=== PATIENT | female | born 1970 | race African-American/Black ===

== ENCOUNTER 2017-06-06 14:49 | Emergency (ER) | payer BC ==
[2017-06-06 14:55] VITALS: TEMP 98.3; BMI 32.8
[2017-06-06] MEDS ORDERED: ASPIRIN 81 MG CHEWABLE TABLETS PO ONE (14:58)
--- NOTE | 2017-06-06 14:58 | PDOC ---
History of Present Illness - General History Source: Patient Exam Limitations: No Limitations - History of Present Illness Initial Comments: 06/06/17 15:14 The patient is a 46 year old female with past medical history of hypothyroidism who presents to the ED with complaints of chest pain that began 10 am today. The patient states that her symptoms began while at [employer] where she began to feel a dull ache under her left breast. She reports that her pain is non- radiating, is worsened with movement, and she noticed the pain was worse when she turned around to reverse her car after [employer]. She states that the pain persisted despite resting for a little after [employer] and taking two extra strength Tylenol. The patient denies any worsening pain with deep inspiration. She denies any shortness of breath or diaphoresis. The patient reports travel last month to [place] but denies any calf swelling or tenderness. She denies any history of familial cardiac disease. She denies any fevers or chills, nausea , vomiting, diarrhea, cough, or urinary symptoms. <Cele Simons - Last Filed: 06/06/17 15:33> <Shyann Hall - Last Filed: 06/06/17 18:29> <Monika Wolfe - Last Filed: 06/06/17 21:00> - General Chief Complaint: Chest Pain Stated Complaint: CHEST PAIN Time Seen by Provider: 06/06/17 14:50 Past History <Cele Simons - Last Filed: 06/06/17 15:33> - Past Medical History COPD: No Thyroid Disease: Yes - Surgical History Abdominal Surgery: Yes (GASTRIC SLEEVE) - Suicide/Smoking/Psychosocial Hx Smoking History: Never smoked Have you smoked in the past 12 months: No Hx Alcohol Use: No <Shyann Hall - Last Filed: 06/06/17 18:29> <Monika Wolfe - Last Filed: 06/06/17 21:00> - Past Medical History Allergies/Adverse Reactions: Allergies Allergy/AdvReac Type Severity Reaction Status Date / Time No Known Allergies Allergy Verified 06/06/17 14:50 Home Medications: Ambulatory Orders Acetaminophen [Tylenol -] 1,000 mg PO ASDIR 06/06/17 Review of Systems - Review of Systems Able to Perform ROS?: Yes Comments:: 06/06/17 15:14 GENERAL/CONSTITUTIONAL: No fever or chills. No weakness. HEAD, EYES, EARS, NOSE AND THROAT: No change in vision. No ear pain or discharge. No sore throat. CARDIOVASCULAR: Present: chest pain No shortness of breath. RESPIRATORY: No cough, wheezing, or hemoptysis. GASTROINTESTINAL: No nausea, vomiting, diarrhea or constipation. GENITOURINARY: No dysuria, frequency, or change in urination. MUSCULOSKELETAL: No joint or muscle swelling or pain. No neck or back pain. SKIN: No rash NEUROLOGIC: No headache, vertigo, loss of consciousness, or change in strength/ sensation. ENDOCRINE: No increased thirst. No abnormal weight change. HEMATOLOGIC/LYMPHATIC: No anemia, easy bleeding, or history of blood clots. ALLERGIC/IMMUNOLOGIC: No hives or skin allergy. All Other Systems: Reviewed and Negative <Cele Simons - Last Filed: 06/06/17 15:33> *Physical Exam - Vital Signs Last Vital Signs Temp Pulse Resp BP Pulse Ox 98.3 F 66 18 122/75 100 06/06/17 14:49 06/06/17 14:49 06/06/17 14:49 06/06/17 14:49 06/06/17 14:49 - Physical Exam Comments: 06/06/17 15:15 GENERAL: Awake, alert, and fully oriented, in no acute distress HEAD: No signs of trauma EYES: PERRLA, EOMI, sclera anicteric, conjunctiva clear ENT: Auricles normal inspection, hearing grossly normal, nares patent, oropharynx clear without exudates. Moist mucosa NECK: Normal ROM, supple, no lymphadenopathy, JVD, or masses LUNGS: Breath sounds equal, clear to auscultation bilaterally. No wheezes, and no crackles HEART: Regular rate and rhythm, normal S1 and S2, no murmurs, rubs or gallops ABDOMEN: Soft, nontender, normoactive bowel sounds. No guarding, no rebound. No masses EXTREMITIES: Normal range of motion, no edema. No clubbing or cyanosis. No cords, erythema, or tenderness NEUROLOGICAL: Cranial nerves II through XII grossly intact. Normal speech, normal gait SKIN: Warm, Dry, normal turgor, no rashes or lesions noted. <Cele Simons - Last Filed: 06/06/17 15:33> - Vital Signs Last Vital Signs Temp Pulse Resp BP Pulse Ox 98.3 F 66 18 122/75 100 06/06/17 14:49 06/06/17 14:49 06/06/17 14:49 06/06/17 14:49 06/06/17 14:49 <Shyann Hall - Last Filed: 06/06/17 18:29> - Vital Signs Last Vital Signs Temp Pulse Resp BP Pulse Ox 98.3 F 66 18 122/75 100 06/06/17 14:49 06/06/17 14:49 06/06/17 14:49 06/06/17 14:49 06/06/17 14:49 <Monika Wolfe - Last Filed: 06/06/17 21:00> Heart Score/ECG Review - History History: Slightly suspicious - Electrocardiogram EKG: Normal - Age Age: 45-65 - Risk Factors Based on the list above the patient has:: No risk factors known - ECG Intrepretation Comment:: 06/06/17 15:27 sinus petty at 53, nl axis, nl interval, no acute st/t wave findings <Shyann Hall - Last Filed: 06/06/17 18:29> ED Treatment Course - LABORATORY CBC & Chemistry Diagram: 06/06/17 15:10 06/06/17 15:10 - RADIOLOGY Radiograph Interpretation: 06/06/17 15:34 Chest X-ray as reviewed by Dr. Santana reports no acute pathology. <Cele Simons - Last Filed: 06/06/17 15:33> - LABORATORY CBC & Chemistry Diagram: 06/06/17 15:10 06/06/17 15:10 - RADIOLOGY Radiology Studies Ordered: Category Date Time Status CHEST PA & LAT [RAD] Stat Radiology 06/06/17 14:57 Ordered <Shyann Hall - Last Filed: 06/06/17 18:29> - LABORATORY CBC & Chemistry Diagram: 06/06/17 15:10 06/06/17 15:10 - ADDITIONAL ORDERS Additional order review: Laboratory Results 06/06/17 06/06/17 06/06/17 15:10 15:10 15:10 PT with INR 12.8 INR 1.15 PTT (Actin FS) 26.7 Sodium 135 L Potassium 3.9 Chloride 102 Carbon Dioxide 25 Anion Gap 8 BUN 11 Creatinine 0.9 Creat Clearance w eGFR > 60 Random Glucose 95 Calcium 9.3 Total Bilirubin 0.4 AST 20 ALT 13 Alkaline Phosphatase 64 Creatine Kinase 237 H Creatine Kinase Index 0.8 CK-MB (CK-2) 2.0 Troponin I < 0.03 L B-Natriuretic Peptide 20.33 Total Protein 6.9 Albumin 3.8 TSH 2.46 Urine HCG, Qual 06/06/17 15:05 PT with INR INR PTT (Actin FS) Sodium Potassium Chloride Carbon Dioxide Anion Gap BUN Creatinine Creat Clearance w eGFR Random Glucose Calcium Total Bilirubin AST ALT Alkaline Phosphatase Creatine Kinase Creatine Kinase Index CK-MB (CK-2) Troponin I B-Natriuretic Peptide Total Protein Albumin TSH Urine HCG, Qual Negative 06/06/17 15:10 RBC 5.16 MCV 63.2 L MCHC 31.3 L RDW 20.3 H MPV 10.0 Neutrophils % 42.4 L Lymphocytes % 45.1 H Monocytes % 9.7 Eosinophils % 1.6 Basophils % 1.2 - Medications Given in the ED: ED Medications Discontinued Medications Generic Name Dose Route Start Last Admin Trade Name Freq PRN Reason Stop Dose Admin Aspirin 324 mg 06/06/17 14:58 06/06/17 15:15 Asa - PO 06/06/17 14:59 324 mg ONCE ONE Administration Ibuprofen 600 mg 06/06/17 18:30 06/06/17 18:38 Motrin - PO 06/06/17 18:31 600 mg ONCE ONE Administration <Monika Wolfe - Last Filed: 06/06/17 21:00> Medical Decision Making - Medical Decision Making 06/06/17 15:27 46yo female with atypical cp -fam hx of dm, htn -no fam hx of PE/DVT or sudden cardiac -no recent travel or leg swelling/calf cramping -not pleuritic in nature -no chest wall tenderness -denies trauma and cough -will check labs, ekg, trop x 2 -low risk - if trops negative can d/c to home with cardiology fu -will give asa ekg nonacute cxr negative for acute pathology 06/06/17 16:23 re-eval: pt states feeling mildly better. No sob. Speaking in clear sentences. No radiation of the pain initial trop negative. labs reviewed with the patient. repeat trop at 9p pt updated and agrees with the plan 06/06/17 18:29 pt states feeling better. no pain at this time. pending repeat trop at 9p. Family at the bedside and updated on the plan. 06/06/17 18:30 pt will be signed out to the oncoming ED physician pending repeat trop <Shyann Hall - Last Filed: 06/06/17 18:29> - Medical Decision Making 06/06/17 20:03 I received pt on signout. If her 2nd cardiac enzyme is negative and she will be discharged home with atypical CP; chest wall pain. 06/06/17 20:59 Pt's enzyme is negative <Monika Wolfe - Last Filed: 06/06/17 21:00> *DC/Admit/Observation/Transfer - Attestations Scribe Attestion: 06/06/17 15:15 Documentation prepared by Cele Simons, acting as manager medical affairs for Shyann Hall DO. <Cele Simons - Last Filed: 06/06/17 15:33> - Discharge Dispostion Admit: No - Attestations Physician Attestion: 06/06/17 15:31 I, Dr. Shyann Hall DO, attest that this document has been prepared under my direction and personally reviewed by me in its entirety. I further attest, that it accurately reflects all work, treatment, procedures and medical decision -making performed by me. <Shyann Hall - Last Filed: 06/06/17 18:29> - Discharge Dispostion Admit: No <Monika Wolfe - Last Filed: 06/06/17 21:00> Diagnosis at time of Disposition: Atypical chest pain - Discharge Dispostion Disposition: HOME Condition at time of disposition: Stable - Referrals Referrals: Sathish Pereira MD [Staff Physician] - Rc Bolden MD [Staff Physician] - - Patient Instructions Printed Discharge Instructions: DI for Atypical Chest Pain Additional Instructions: Please make an appointment to see your PMD this week. Please return to the ED with any further concerns. Please follow up with the whitewater rafting guide if the pain continues. - Post Discharge Activity Forms/Work/School Notes: Back to Work
[2017-06-06] MEDS ORDERED: ASPIRIN 81 MG CHEWABLE TABLETS ONE (15:09)
[2017-06-06 15:45] LABS: ALBUMIN 3.8 g/dl (3.5-5.0); ALK PHOS 64 U/L (32-92); ANION GAP 8 (8-16); BILIRUBIN,TOTAL 0.4 mg/dl (0.2-1.0); CALCIUM 9.3 mg/dl (8.4-10.2); CO2 25 mmol/L (22-28); CPK 237 IU/L (26-192); CREATININE 0.9 mg/dl (0.6-1.3); GLUCOSE,RANDOM 95 mg/dl (74-106); SGOT/AST 20 U/L (10-42); SGPT/ALT 13 U/L (10-40); TOT PROT 6.9 g/dl (6.4-8.3)
[2017-06-06 15:52] LABS: BASO % 1.2 % (0-2.0); EOS % 1.6 % (0-4.5); MCHC 31.3 g/dl (32.0-36.0); MEAN CELL VOLUME 63.2 fl (80-96); NEUT % 42.4 % (42.8-82.8); PLATELET COUNT 163 K/MM3 (134-434); RDW 20.3 % (11.6-15.6); WHITE BLOOD COUNT 7.7 K/mm3 (4.0-10.8)
[2017-06-06 16:01] LABS: ACTIVATED PTT 26.7 SECONDS (24.0-38.9); MCH 19.8 pg (25.7-33.7)
[2017-06-06 16:02] LABS: BASO # 0.1 # (0.1-1); EOS # 0.1 #; LYMPH # 3.5 # (8-40); MONO # 0.7 #; NEUT # 3.3 # (42.8-82.8)
[2017-06-06 16:05] LABS: INR 1.15 (0.82-1.09); PROTHROMBIN TIME (PATIENT) 12.8 SEC (10.2-13.0)
[2017-06-06 16:19] LABS: TROPONIN I (DFP) < 0.03 ng/ml (0.03-0.50)
[2017-06-06 18:16] LABS: THYROID STIMULATING HORMONE 2.46 uIU/ml (0.358-3.74)
[2017-06-06] MEDS ORDERED: IBUPROFEN 600 MG TABLET (FP) PO ONE ×4 (18:30→21:19)
[2017-06-06 20:36] LABS: CPK 238 IU/L (26-192)
[2017-06-06 20:51] LABS: TROPONIN I (DFP) < 0.03 ng/ml (0.03-0.50)
[2017-06-06 21:04] VITALS: BP 122/60; PULSE 71
--- NOTE | 2017-06-07 12:17 | EKG ---
Test Reason : Blood Pressure : / mmHG Vent. Rate : 053 BPM Atrial Rate : 053 BPM P-R Int : 188 ms QRS Dur : 086 ms QT Int : 438 ms P-R-T Axes : 046 -02 035 degrees QTc Int : 410 ms SINUS BRADYCARDIA OTHERWISE NORMAL ECG NO PREVIOUS ECGS AVAILABLE Confirmed by ROSA ELENA IRBY MD ([id number]) on 06/07/2017 12:17:27 PM Referred By: CYNTHIA TAMEZ Confirmed By:ROSA ELENA IRBY MD
== END 2017-06-06 21:20 | disposition home or self-care (01) ==
LOC: FER 14:49
DX: R07.89 Other chest pain (principal); E03.9 Hypothyroidism, unspecified
CPT/HCPCS: 36415; 71020-TC; 80053; 82550; 82553; 83880; 84443; 84484; 84703; 85025; 85610; 85730; 93005; 99285-25

== ENCOUNTER 2018-05-27 06:58 | Day surgery (SDC) | payer BC ==
[2018-05-23 11:47] VITALS: BMI 29.7
[2018-05-27] MEDS ORDERED: MIDAZOLAM HCL 2 MG/2 ML SINGLE DOSE VIAL ONE (08:30)
[2018-05-27] MEDS ORDERED: BUPIVACAINE HCL/PF 2.5 MG/ML - 30 ML VIAL IJ ONE (08:37)
[2018-05-27] MEDS ORDERED: EPINEPHrine 1:1,000 1 MG/1 ML - 30ML VIAL (INJECTION) ONE (08:38)
[2018-05-27] MEDS ORDERED: PROPOFOL 20 ML ONE (09:37)
[2018-05-27] MEDS ORDERED: BUPIVACAINE HCL/PF 0.25% (2.5MG/ML) 10 ML VIAL IJ ONE (09:45)
[2018-05-27 11:38] VITALS: PULSE 70
[2018-05-27 12:35] VITALS: BP 121/65; TEMP 98
--- NOTE | 2018-05-29 13:18 | OP ---
DATE OF OPERATION: 05/27/2018 LOCATION: [facility]. SURGEON: Jamey Gusman MD SPIRAL SPRING WINDER: GIGI Miller PREOPERATIVE DIAGNOSES: 1. Left knee medial and lateral meniscal tear. 2. Left knee cartilage injury. 3. Left knee synovitis. POSTOPERATIVE DIAGNOSES: 1. Left knee medial and lateral meniscal tear. 2. Left knee cartilage injury. 3. Left knee synovitis. PROCEDURES: 1. Left knee arthroscopy with partial meniscectomy of medial and lateral meniscus, CPT code 77463. 2. Left knee arthroscopy with chondroplasty and abrasion-plasty, CPT code 95502. 3. Left knee arthroscopy with synovectomy, CPT code 99714. FINDINGS: 1. Medial meniscus body and posterior horn tear. 2. Lateral meniscus posterior horn tear. 3. Synovitis, patellofemoral, medial and lateral notch area. 4. Diffuse grade 1 to 2 cartilage injury, medial joint. 5. ACL and PCL intact. 6. Grade 2 changes in lateral joint. 7. Central grade 2 to 4 cartilage injury, patellofemoral trochlea and patellofemoral joint. PROCEDURE: Informed consent was obtained. The patient came to the operating room, where the lower extremity was prepped and draped in a sterile fashion. A tourniquet was placed on the upper thigh, but not inflated. Using standard arthroscopic technique, a lateral incision and portal was made to allow for introduction of the camera into the suprapatellar bursa. This was then taken to the medial joint line, where under direct visualization, a medial incision and portal was made. Excessive synovium noted in the medial, lateral and patellofemoral and notch area was removed by an upbiter, shaver and Bovie cautery. This was found to bring in inflammatory tissue into the joint surface, a source of pain and dysfunction. Probing of the medial and lateral meniscus found tears, as described in the findings. These were removed with the upbiter and shaver and taken back to a stable rim. Grade 2 to 3 degenerative changes were treated with a chondroplasty, removing all flaking surfaces with low-setting Bovie along the periphery to prevent further flaking. Grade 4 changes, as noted, were treated with an abrasoplasty, creating a bleeding surface at the bone/cartilage interface. Aggressive debridement with shaver/tommie created bleeding surface. Micro fracture also done when indicated in findings. All areas of the knee were once again reexamined. The knee was then drained and a single suture was placed in all portals. A sterile dressing was placed and the patient was transferred to the recovery room without complication. The PA listed above was present and assisted at surgery. Their presence was absolutely medically necessary for the completion of the procedure. They helped hold the arthroscopy, pass instruments (and implants when indicated) and the procedure could not have been completed without their assistance. JAMEY GUSMAN M.D. [id number]
== END 2018-05-27 13:00 | disposition home or self-care (01) ==
LOC: FASU 06:58
PROVIDERS: ATTEND Orthopaedic Surgery
PROC: 0SBD4ZZ Excision of Left Knee Joint, Percutaneous Endoscopic Approach (ICD-10-PCS; 2018-05-27)
PROC: 0SBD4ZZ Excision of Left Knee Joint, Percutaneous Endoscopic Approach (ICD-10-PCS; 2018-05-27)
PROC: 0SBD4ZZ Excision of Left Knee Joint, Percutaneous Endoscopic Approach (ICD-10-PCS; principal; 2018-05-27 08:30)
DX: S83.242A Other tear of medial meniscus, current injury, left knee, initial encounter (principal); S83.282A Other tear of lateral meniscus, current injury, left knee, initial encounter; S83.8X2A Sprain of other specified parts of left knee, initial encounter; M65.862 Other synovitis and tenosynovitis, left lower leg; X58.XXXA Exposure to other specified factors, initial encounter; Y93.9 Activity, unspecified; Y92.9 Unspecified place or not applicable
CPT/HCPCS: 84703; 94760

== ENCOUNTER 2019-12-19 06:21 | Inpatient (IN) | payer BC ==
[2019-12-18 11:01] VITALS: BMI 32.8
[2019-12-19] MEDS ORDERED: SUCCINYLCHOLINE CHLORIDE 200 MG/10 ML SYRINGE ONE (07:26)
[2019-12-19] MEDS ORDERED: PROPOFOL 20 ML ONE (07:26)
[2019-12-19] MEDS ORDERED: ROCURONIUM BROMIDE 100 MG/10 ML VIAL ONE ×2 (07:26→08:46)
[2019-12-19] MEDS ORDERED: MIDAZOLAM HCL 2 MG/2 ML SINGLE DOSE VIAL ONE ×3 (07:26→07:56)
--- NOTE | 2019-12-19 07:39 | HP ---
History & Physical Update - History History: No Change - Physical Physical: No Change - Assessment Assessment: No Change - Plan Plan: No Change (Consent signed and witnessed, all questions answered)
[2019-12-19] MEDS ORDERED: DESFLURANE GAS 240 ML BOTTLE IH ONE (07:57)
[2019-12-19] MEDS ORDERED: SEVOFLURANE 250 ML BTL ONE (07:57)
[2019-12-19] MEDS ORDERED: ceFAZolin SODIUM 1 GM VIAL IVPB ONE (08:17)
[2019-12-19] MEDS ORDERED: ceFAZolin SODIUM 1 GM VIAL ONE (09:05)
[2019-12-19] MEDS ORDERED: NEOSTIGMINE METHYLSULFATE 0.5 MG/ML - 10 ML MDV ONE (09:05)
[2019-12-19] MEDS ORDERED: KETOROLAC TROMETHAMINE 30 MG/1 ML VIAL ONE (09:05)
[2019-12-19] MEDS ORDERED: DEXAMETHASONE SOD PHOSPHATE 4 MG/1 ML VIAL ONE (09:05)
[2019-12-19] MEDS: CEFAZOLIN 2 GM/D5W 2 GM/50 ML ML IVPB SCH ×3 (10:00→17:12)
[2019-12-19] MEDS ORDERED: BENZOIN/ALOE VERA/STORAX/TOLU 58 ML BOTTLE ONE (10:10)
[2019-12-19] MEDS ORDERED: oxyCODONE HCL 5 MG TABLET PO PRN ×2 (10:33→11:14)
[2019-12-19] MEDS ORDERED: IBUPROFEN 800 MG/8 ML IJ IVPB PRN (10:33)
[2019-12-19] MEDS ORDERED: IBUPROFEN 600 MG TABLET (FP) PO PRN (10:33)
--- NOTE | 2019-12-19 10:36 | OP ---
Operative Note - Note: Operative Date: 12/19/19 Pre-Operative Diagnosis: 49yo P2 with large fibroid uterus, menorrhagia, anemia, Dysmenorrhia Operation: Abdominal Supracervical Hysterectomy, Bilateral Salpingectomy Findings: 16week multifibroid uterus Normal tubes and ovaries Post-Operative Diagnosis: Same as Pre-op Surgeon: Lizbeth Bowman Pool Table Operator: Kendrick Casey Anesthesiologist/FILLER BLENDER: Karrie Mccarthy Anesthesia: General Specimens Removed: Uterine fundus with fibroids, Bilateral Fallopian tubes Estimated Blood Loss (mls): 100 Drains, Volume Out (mls): 200 Fluid Volume Replaced (mls): 1,400 Operative Report Dictated: Yes
[2019-12-19] MEDS ORDERED: ENOXAPARIN NA (PORCINE) 40 MG/0.4 ML DISP.SYRIN SQ ONE (11:00)
[2019-12-19] MEDS ORDERED: ACETAMINOPHEN INJECTION 100 ML IVPB ONE (11:49)
[2019-12-19] MEDS: ACETAMINOPHEN 1000 MG/100 ML VIAL (NON FORMULARY) IVPB SCH ×2 (11:52→18:13)
[2019-12-19] MEDS ORDERED: HYDROmorphone HCl 2 MG/ML VIAL ONE (12:51)
[2019-12-19] MEDS: HYDROmorphone HCl 2 MG/ML VIAL IVPB PRN ×2 (12:54→14:19)
[2019-12-19] MEDS ORDERED: ONDANSETRON 4 MG/2 ML VIAL ONE (14:16)
[2019-12-19] MEDS: ONDANSETRON 4 MG/2 ML VIAL IVPUSH PRN (14:19)
[2019-12-19] MEDS ORDERED: oxyCODONE HCL 5 MG TABLET ONE (15:13)
[2019-12-19] MEDS: oxyCODONE HCL 5 MG TABLET PO PRN (15:16)
[2019-12-19] MEDS: oxyCODONE HCL 10 MG SUSTAINED ACTING TABLET PO SCH (22:36)
[2019-12-20] MEDS: LACTATED RINGERS SOLUTION 1,000 ML IV SCH ×2 (00:23→12:55)
[2019-12-20] MEDS: ACETAMINOPHEN 1000 MG/100 ML VIAL (NON FORMULARY) IVPB SCH ×3 (00:23→12:49)
[2019-12-20] MEDS: ELECTROLYTE-148 SOLN 1,000 ML IV SCH ×2 (00:30→12:55)
[2019-12-20] MEDS: CEFAZOLIN 2 GM/D5W 2 GM/50 ML ML IVPB SCH (02:30)
[2019-12-20] MEDS: oxyCODONE HCL 5 MG TABLET PO PRN (04:21)
[2019-12-20] MEDS: ONDANSETRON 4 MG/2 ML VIAL IVPUSH PRN ×2 (04:36→13:15)
--- NOTE | 2019-12-20 08:45 | PN ---
Progress Note (short form) - Note Progress Note: Anesthesia postop note POD#1. S/P Abdominal Supracervical Hysterectomy, Bilateral Salpingectomy under GA with TAP block. VSS. pain well controlled, 09/21. Slight sore throat, Reassured. Tolerating po. No apparent post anesthesia complications.
[2019-12-20] MEDS: oxyCODONE HCL 10 MG SUSTAINED ACTING TABLET PO SCH ×2 (09:17→21:59)
--- NOTE | 2019-12-20 10:08 | OP ---
DATE OF OPERATION: 12/19/2019 DIAGNOSIS: [id number] para 2 with large 18-cm fibroid uterus, menorrhagia, anemia, dysmenorrhea. OPERATION: Abdominal supracervical hysterectomy, bilateral salpingectomy. FINDINGS: Sixteen-week multi-fibroid uterus, normal tubes and ovaries. POSTOPERATIVE DIAGNOSIS: [id number] para 2 with large 18-cm fibroid uterus, menorrhagia, anemia, dysmenorrhea. SURGEON: Libzeth Bowman MD PICKLE PROCESSOR: Kendrick Casey MD ANESTHESIOLOGIST: Karrie Mccarthy MD ANESTHESIA: General. DESCRIPTION OF THE OPERATIVE PROCEDURE: After assuring informed consent, patient was brought to the operating room where general anesthesia was administered. Abdomen was prepped and draped in sterile fashion. Pfannenstiel skin incision was created in the same area of her prior . The incision was carried down to the level of the fascia with scalpel, and fascia was incised with scalpel and dissected bilaterally with Bovie cautery. The fascia was dissected off the rectus abdominis muscle with Bovie cautery. Muscle was split in the midline and peritoneum was identified and tented with Kellies and opened with Metzenbaum scissors, with good visualization of underlying structures. Peritoneal incision was extended superiorly and inferiorly. The uterus was exteriorized through the incision. Bladder was retracted, and round ligament was noted on the right side and was cauterized and dissected with LigaSure clamp. Identical procedure was performed to the left round ligament. The vesicouterine peritoneum was incised and the bladder flap was created. Bladder was dissected downward and retracted with the Sweta retractor. The right fallopian tube was dissected off the broad ligament, off the mesosalpinx. Subsequently, the broad ligament was incised and the uteroovarian ligament was clamped with large Belkis and dissected off the uterine fundus. The uteroovarian ligament was tied with 3-0 tie and suture ligated with 0 Vicryl. Excellent hemostasis was noted. Identical procedure was performed on both right and left ovary, and both right and left fallopian tubes were dissected and sent for permanent pathology. Subsequently, the uterine artery was skeletonized and was grasped with Reyes clamp, was dissected off the uterine body and suture ligated with 0 Vicryl. Identical procedure was performed to both uterine arteries. Further downward Reyes clamp was placed at the lower uterine segment, cervical junction to dissect the uterine artery further off the uterus, so second bite dissecting the uterine artery was created with Reyes clamp and suture ligated with 0 Vicryl bilaterally. Excellent hemostasis was noted throughout. The uterine fundus was dissected off the cervix with Bovie cautery. The cervical stump was oversewn with 0 Vicryl sutures, imbricating the cervix. Excellent hemostasis was noted, and subsequently the parietal peritoneum was closed over the cervical stump with 2-0 Vicryl. Abdomen was copiously irrigated. All sponges were removed. Excellent hemostasis was noted, and peritoneum was identified and closed with 0 Vicryl. Muscle was reapproximated at the midline with 0 Vicryl. Fascia was closed with 0 Vicryl in running fashion in 2 segments from each corner of the fascial incision. The subcutaneous tissue was reapproximated with 2-0 chromic, and subsequently skin was closed with 4-0 Biosyn. Sponge and instrument count was correct x2. Estimated blood loss was 100 mL. Patient put out 200 mL of clear urine and received 1400 mL of IV fluids. She was brought to the recovery room in stable condition. Merary [id number]
[2019-12-20 12:04] LABS: HEMATOCRIT 32.8 % (32.4-45.2); HEMOGLOBIN 10.4 GM/dL (10.7-15.3); MCH 20.6 pg (25.7-33.7); MCHC 31.6 g/dl (32.0-36.0); MEAN CELL VOLUME 65.1 fl (80-96); MEAN PLT VOLUME 9.9 fl (7.5-11.1); PLATELET COUNT 159 K/MM3 (134-434); RBC 5.03 M/mm3 (3.60-5.2); RDW 31.2 % (11.6-15.6); WHITE BLOOD COUNT 18.7 K/mm3 (4.0-10.0)
--- NOTE | 2019-12-20 18:05 | PN ---
Progress Note, Physician Chief Complaint: No acute complains pain well controlled no flatus tolarated regular diet POPD #1 s/p NILSA/Bl salpingectomy History of Present Illness: Large fibroid uterus - Current Medication List Current Medications: Active Medications Hydromorphone HCl (Dilaudid Vial -) 1 mg IVPB Q4H PRN PRN Reason: PAIN LEVEL 7 - 10 Last Admin: 12/19/19 14:19 Dose: 0.5 mg Documented by: Parenteral Electrolytes (Plasma-Lyte 148 -) 1,000 mls @ 125 mls/hr IV ASDIR [facility] Last Admin: 12/20/19 12:55 Dose: Not Given Documented by: Lactated Ringer's (Lactated Ringers Solution) 1,000 mls @ 125 mls/hr IV ASDIR [facility] Last Admin: 12/20/19 12:55 Dose: Not Given Documented by: Ibuprofen (Caldolor Injection -) 800 mg IVPB Q6H PRN PRN Reason: Fever - If PO not effective. Ibuprofen (Motrin -) 600 mg PO Q6H PRN PRN Reason: FEVER Levothyroxine Sodium (Synthroid -) 50 mcg PO DAILY@0700 NILSA Ondansetron HCl (Zofran Injection) 4 mg IVPUSH Q6H PRN PRN Reason: NAUSEA Last Admin: 12/20/19 13:15 Dose: 4 mg Documented by: Oxycodone HCl (Roxicodone -) 5 mg PO Q4H PRN PRN Reason: PAIN LEVEL 1 - 3 Oxycodone HCl (Roxicodone -) 10 mg PO Q4H PRN PRN Reason: PAIN LEVEL 4 - 6 Last Admin: 12/20/19 04:21 Dose: 10 mg Documented by: Oxycodone HCl (Oxycontin -) 10 mg PO BID [facility] Last Admin: 12/20/19 09:17 Dose: 10 mg Documented by: - Objective Vital Signs: Vital Signs Temperature 98.2 F 12/20/19 14:25 Pulse Rate 67 12/20/19 14:25 Respiratory Rate 20 12/20/19 14:25 Blood Pressure 145/79 12/20/19 14:25 O2 Sat by Pulse Oximetry (%) 97 12/19/19 21:00 Constitutional: Yes: Well Nourished, No Distress, Calm Eyes: Yes: WNL, Conjunctiva Clear HENT: Yes: WNL, Atraumatic, Normocephalic Neck: Yes: WNL Cardiovascular: Yes: WNL, Regular Rate and Rhythm Respiratory: Yes: WNL, Regular, CTA Bilaterally Gastrointestinal: Yes: WNL, Normal Bowel Sounds, Soft Genitourinary: Yes: WNL Musculoskeletal: Yes: WNL Extremities: Yes: WNL Edema: No (Compression stockings on) Integumentary: Yes: WNL Wound/Incision: Yes: Clean/Dry, Dressing Dry and Intact Neurological: Yes: WNL, Alert, Oriented ...Motor Strength: WNL Psychiatric: Yes: WNL, Alert, Oriented Labs: CBC, BMP 12/20/19 11:10 Assessment/Plan 49yo P2 POD #1, s/p NILSA/Bl salpingectomy VSS, Afebrile Await voiding trial encourage ambulation routine PostOp care 'cont Synthroid
[2019-12-20] MEDS ORDERED: BISACODYL 10 MG SUPP.RECT PR PRN (18:17)
[2019-12-20] MEDS: HYDROmorphone HCl 2 MG/ML VIAL IVPB PRN (23:30)
[2019-12-21] MEDS: HYDROmorphone HCl 2 MG/ML VIAL IVPB PRN (06:06)
[2019-12-21] MEDS: LEVOTHYROXINE NA 50 MCG TABLET (FP) PO SCH (06:08)
--- NOTE | 2019-12-21 08:21 | PN ---
Progress Note, Physician - Current Medication List Current Medications: Active Medications Bisacodyl (Dulcolax Suppository -) 10 mg KS PRN PRN PRN Reason: CONSTIPATION Last Admin: 12/20/19 22:19 Dose: 10 mg Documented by: Hydromorphone HCl (Dilaudid Vial -) 1 mg IVPB Q4H PRN PRN Reason: PAIN LEVEL 7 - 10 Last Admin: 12/21/19 06:06 Dose: 1 mg Documented by: Parenteral Electrolytes (Plasma-Lyte 148 -) 1,000 mls @ 125 mls/hr IV ASDIR [facility] Last Admin: 12/20/19 12:55 Dose: Not Given Documented by: Lactated Ringer's (Lactated Ringers Solution) 1,000 mls @ 125 mls/hr IV ASDIR [facility] Last Admin: 12/20/19 12:55 Dose: Not Given Documented by: Ibuprofen (Caldolor Injection -) 800 mg IVPB Q6H PRN PRN Reason: Fever - If PO not effective. Ibuprofen (Motrin -) 600 mg PO Q6H PRN PRN Reason: FEVER Levothyroxine Sodium (Synthroid -) 50 mcg PO DAILY@0700 [facility] Last Admin: 12/21/19 06:08 Dose: 50 mcg Documented by: Ondansetron HCl (Zofran Injection) 4 mg IVPUSH Q6H PRN PRN Reason: NAUSEA Last Admin: 12/20/19 13:15 Dose: 4 mg Documented by: Oxycodone HCl (Roxicodone -) 5 mg PO Q4H PRN PRN Reason: PAIN LEVEL 1 - 3 Oxycodone HCl (Roxicodone -) 10 mg PO Q4H PRN PRN Reason: PAIN LEVEL 4 - 6 Last Admin: 12/20/19 04:21 Dose: 10 mg Documented by: Oxycodone HCl (Oxycontin -) 10 mg PO BID [facility] Last Admin: 12/20/19 21:59 Dose: 10 mg Documented by: - Objective Vital Signs: Vital Signs Temperature 98.4 F 12/21/19 05:15 Pulse Rate 56 L 12/21/19 05:15 Respiratory Rate 20 12/21/19 05:15 Blood Pressure 122/50 L 12/21/19 05:15 O2 Sat by Pulse Oximetry (%) 97 12/19/19 21:00 Labs: CBC, BMP 12/20/19 11:10
[2019-12-21 11:44] LABS: BASO % 0.6 % (0-2.0); EOS % 0.4 % (0-4.5); HEMATOCRIT 33.7 % (32.4-45.2); HEMOGLOBIN 10.6 GM/dL (10.7-15.3); LYMPH % 25.7 % (8-40); MCH 20.8 pg (25.7-33.7); MCHC 31.5 g/dl (32.0-36.0); MEAN CELL VOLUME 66.1 fl (80-96); MEAN PLT VOLUME 9.6 fl (7.5-11.1); MONO % 7.4 % (3.8-10.2); NEUT % 65.9 % (42.8-82.8); PLATELET COUNT 172 K/MM3 (134-434); RBC 5.09 M/mm3 (3.60-5.2); RDW 30.8 % (11.6-15.6); WHITE BLOOD COUNT 14.2 K/mm3 (4.0-10.0)
[2019-12-21 13:20] LABS: ANISOCYTOSIS 2+; TARGET CELLS 1+
[2019-12-21] MEDS: LACTATED RINGERS SOLUTION 1,000 ML IV SCH (19:02)
[2019-12-21] MEDS: ELECTROLYTE-148 SOLN 1,000 ML IV SCH (19:02)
[2019-12-22] MEDS: LEVOTHYROXINE NA 50 MCG TABLET (FP) PO SCH (06:06)
[2019-12-22 07:38] VITALS: BP 117/79; PULSE 66; TEMP 98.6
--- NOTE | 2019-12-22 09:10 | DS ---
Physical Examination Vital Signs: Vital Signs Temperature 98.6 F 12/22/19 06:00 Pulse Rate 66 12/22/19 06:00 Respiratory Rate 20 12/22/19 06:00 Blood Pressure 117/79 12/22/19 06:00 O2 Sat by Pulse Oximetry (%) 97 12/21/19 20:24 Constitutional: Yes: Well Nourished, No Distress, Calm Eyes: Yes: WNL HENT: Yes: WNL Neck: Yes: WNL, Supple Cardiovascular: Yes: WNL, Regular Rate and Rhythm Respiratory: Yes: WNL, Regular, CTA Bilaterally Gastrointestinal: Yes: WNL, Normal Bowel Sounds, Soft Renal/: Yes: WNL Breast(s): Yes: WNL Musculoskeletal: Yes: WNL Extremities: Yes: WNL Integumentary: Yes: WNL Wound/Incision: Yes: Clean/Dry, Well Approximated Neurological: Yes: WNL, Alert, Oriented ...Motor Strength: WNL Psychiatric: Yes: WNL, Alert, Oriented Labs: CBC, BMP 12/21/19 11:10 Discharge Summary Problems reviewed: Yes Reason For Visit: ABN UTERINE & VAG BLEED, UNSPEC/FIBROID UTERUS Procedures: Principal: Supracervical Hysterectomy, Bilateral Salpingectomy Hospital Course: Uncomplicated Condition: Good - Instructions Disposition: HOME - Home Medications Comprehensive Discharge Medication List: Ambulatory Orders Ferrous Sulfate [Iron] 325 mg PO PRN 05/23/18 Levothyroxine [Synthroid -] 50 mcg PO DAILY 05/23/18 Iron Sucrose Injection [Venofer Injection -] 200 mg IVPB ASDIR 12/18/19 Naproxen [Naprosyn] 500 mg PO PRN 12/18/19
--- NOTE | 2019-12-22 12:27 | PATH ---
Surgical Pathology Report Patient Name: KANDI LOREDO [facility]. Rec. #: [id number] /Age/Gender: 1970 (Age: 49) / F Account: [id number] Location: [address] [place] [address]/[facility] Taken: 12/19/2019 Received: 12/19/2019 Reported: 12/22/2019 Physicians: Lizbeth Bowman M.D. Specimen(s) Received A: LEFT FALLOPIAN TUBE AND RIGHT FALLOPIAN TUBE B: UTERUS Clinical History Abnormal uterine and vaginal bleeding, fibroid uterus Final Diagnosis A. LEFT FALLOPIAN TUBE AND RIGHT FALLOPIAN TUBE, BILATERAL SALPINGECTOMY: BILATERAL FALLOPIAN TUBES WITH ENDOSALPINGIOSIS. B. UTERUS, SUPRACERVICAL HYSTERECTOMY: LEIOMYOMATA. WEAKLY PROLIFERATIVE ENDOMETRIUM WITH GLANDULAR ATROPHY. PORTION OF CERVIX WITH ACUTE AND CHRONIC CERVICITIS AND SQUAMOUS METAPLASIA. Electronically Signed Mario Smyth M.D. Gross Description A. Received in formalin labeled "left fallopian tube and right fallopian tube," are 2 fimbriated fallopian tubes measuring 5.0 and 6.0 cm in length. The outer surfaces are rizzo purple and smooth. Sectioning reveals unremarkable lumen. [employer] sections are submitted in 4 cassettes as follows: 1-shorter fallopian tube fimbria; 2-cross sections of shorter fallopian tube; 3-longer fallopian tube fimbria; 4-cross sections of longer fallopian tube. B. Received in formalin labeled "uterus," is a 790 g supracervically amputated uterus with no attached adnexa. The specimen measures 13.5 cm from superior to inferior, 11.2 cm from left to right and 9.5 cm from anterior to posterior. The serosa is wei-lomeli with multiple bulging subserosal nodules. The endometrial cavity measures 8 cm in length a 1 cm from cornu to cornu. The endometrium is red and averages 0.1 cm in thickness. The myometrium displays abundant intramural nodules, measuring up to 6.0 cm in greatest dimension. The cut surface of the nodules is wei and rubbery with whorled architecture. No areas of hemorrhage or necrosis are identified. The remaining myometrium is wei-pink and averages 4.5 cm in thickness. [employer] Developer sections are submitted in 12 cassettes as follows: 1-cervical stump margin of resection; 8-9-ghbrdajinrodaz; 6-subserosal nodules; 7-9-largest intramural nodule; 75-99-szrexvzdqx intramural nodules. DL12/20/2019 saudi12/20/2019
== END 2019-12-22 11:21 | disposition home or self-care (01) | DRG 743 ==
LOC: J2C 06:21 → J6S 15:33
PROVIDERS: ADMIT Obstetrics & Gynecology; ATTEND Obstetrics & Gynecology
PROC: 0UT70ZZ Resection of Bilateral Fallopian Tubes, Open Approach (ICD-10-PCS; 2019-12-19)
PROC: 0UT90ZL Resection of Uterus, Supracervical, Open Approach (ICD-10-PCS; principal; 2019-12-19 07:30)
DX: D25.9 Leiomyoma of uterus, unspecified (principal); N92.0 Excessive and frequent menstruation with regular cycle; N94.6 Dysmenorrhea, unspecified; D64.9 Anemia, unspecified
CPT/HCPCS: 36415; 84703; 85025; 85027; 86850; 86900; 86901; 88302-TC; 88307-TC; 94760; J0131